=== PATIENT | female | born 1990 | race Two or more races ===

== ENCOUNTER 2016-06-26 15:14 | Inpatient (IN) | payer MEDICAID ==
[~2016-06-26] VITALS: Ht 167.6 cm; Wt 106.6 kg
[2016-06-26 16:00] LABS: Basophils # (auto) 0 uL; DEFINITIVE VIEW TRANSMISSION; Eosinophils # (auto) 0 uL; Lymphocytes # (auto) 1.8 uL; Monocytes # (auto) 0.3 uL; White Blood Cell 5.1 10^3/uL (4.4-10.8)
[2016-06-26 16:04] LABS: Basophils % (auto) 0.4 % (0.0-2.0); Eosinophils % (auto) 0.6 % (0.0-7.0); Hemoglobin 12.9 g/dL (12.2-16.2); Lymphocytes % (auto) 35.7 % (10.0-50.0); Mean Corpuscular Hemoglobin 27.4 pg (28.0-32.0); Mean Corpuscular Hgb Conc. 31.6 g/dL (32.0-36.0); Mean Corpuscular Volume 86.9 fL (80.0-100.0); Mean Platelet Volume 7.6 fL (7.4-10.4); Monocytes % (auto) 5.3 % (0.0-12.0); Platelet Count (auto) 338 10^3/uL (140-450); Red Cell Distribution Width 13.1 % (11.6-16.0)
[2016-06-26 16:20] LABS: Potassium 3.3 mmol/L (3.5-5.1)
[2016-06-26 16:23] LABS: Albumin 3.6 g/dL (3.4-5.0)
[2016-06-26 16:26] LABS: Bilirubin, Total 1.1 mg/dL (0.2-1.0); Total Protein 7.4 g/dL (6.4-8.2)
[2016-06-26] MEDS ORDERED: SODIUM CHLORIDE 0.9% 2,000 ML IV ONE (16:45)
[2016-06-26] MEDS ORDERED: KETOROLAC TROMETH 30 MG/ML 1ML VIAL IV ONE (16:45)
[2016-06-26] MEDS ORDERED: POTASSIUM CHL 20 Meq TABLET PO ONE (18:15)
[2016-06-26] MEDS ORDERED: TEMAZEPAM 15 MG CAP PO PRN (18:30)
[2016-06-26] MEDS ORDERED: ACETAMINOPHEN 500 MG TAB PO PRN (18:30)
[2016-06-26] MEDS ORDERED: PROMETHAZINE HCL 25 MG/ML 1ML IV PRN (18:30)
[2016-06-26] MEDS ORDERED: LORazepam 0.5 MG TAB PO PRN (18:30)
[2016-06-26] MEDS ORDERED: MORPHINE SULF INJ 2 MG/ML SYRINGE 1ML IV PRN (18:30)
[2016-06-26] MEDS ORDERED: HYDROcodone-ACET 5/325MG TAB PO PRN (18:30)
[2016-06-26] MEDS: FAMOTIDINE (10MG/ML) 2ML VL IV SCH (19:05)
[2016-06-26] MEDS: SODIUM CHLORIDE 0.9% 1,000 ML IV SCH ×2 (19:05→22:37)
[2016-06-26] MEDS ORDERED: cloNIDine HCL 0.1 MG TAB PO PRN (20:15)
[2016-06-26 20:33] VITALS: BP 137/69
[2016-06-26 21:08] VITALS: BP 137/69
[2016-06-26 21:23] VITALS: BP 137/69
[2016-06-26 22:30] LABS: Urine Bilirubin Negative (Negative); Urine Blood Negative /uL (Negative); Urine Color Yellow (Yellow); Urine Glucose Normal (Normal); Urine Ketone Negative (Negative); Urine Nitrite Negative (Negative); Urine RBC <1 /hpf (0 - 4); Urine Squamous Epithelial Cell FEW /hpf (<5); Urine Urobilinogen Normal (Negative)
[2016-06-27 04:42] VITALS: BP 146/49
[2016-06-27 06:01] LABS: Basophils # (auto) 0 uL; Basophils % (auto) 0.9 % (0.0-2.0); Eosinophils # (auto) 0.1 uL; Eosinophils % (auto) 1.9 % (0.0-7.0); Hematocrit 40.5 % (36.0-46.0); Hemoglobin 12.9 g/dL (12.2-16.2); Lymphocytes # (auto) 1.5 uL; Lymphocytes % (auto) 49.4 % (10.0-50.0); Mean Corpuscular Hemoglobin 27.3 pg (28.0-32.0); Mean Corpuscular Volume 85.4 fL (80.0-100.0); Mean Platelet Volume 7.4 fL (7.4-10.4); Monocytes # (auto) 0.2 uL; Monocytes % (auto) 7.3 % (0.0-12.0); Neutrophils # (auto) 1.2 uL; Neutrophils % (auto) 40.5 % (37.0-80.0); Platelet Count (auto) 300 10^3/uL (140-450); Red Cell Distribution Width 13.1 % (11.6-16.0)
[2016-06-27] MEDS: FAMOTIDINE (10MG/ML) 2ML VL IV SCH (06:20)
[2016-06-27 06:36] LABS: Potassium 3.9 mmol/L (3.5-5.1)
[2016-06-27 06:46] LABS: Amylase 25 U/L (25-115); Cholesterol 119 mg/dL (<200); Triglycerides 65 mg/dL (<150)
[2016-06-27 06:48] LABS: HDL Cholesterol 45 mg/dL (40-59); LDL Cholesterol 72 mg/dL (<100)
[2016-06-27 06:55] LABS: BUN/Creatinine Ratio 8.1; Calcium 7.6 mg/dL (8.5-10.1); Total Protein 6.4 g/dL (6.4-8.2)
[2016-06-27 06:59] LABS: Albumin 2.9 g/dL (3.4-5.0); Bilirubin, Total 2.3 mg/dL (0.2-1.0)
[2016-06-27 08:00] VITALS: BP 120/72
[2016-06-27 09:00] VITALS: BP 120/72
[2016-06-27 13:00] VITALS: BP 117/65
[2016-06-29 13:17] LABS: Hepatitis B Surface Antibody Positive
== END 2016-06-27 15:00 | disposition short-term general hospital (02) ==
LOC: ER 15:21 → CENTRAL 15:22
PROVIDERS: ADMIT Internal Medicine; ATTEND Internal Medicine
DX: K80.20 Calculus of gallbladder without cholecystitis without obstruction (principal); E66.01 Morbid (severe) obesity due to excess calories; F41.9 Anxiety disorder, unspecified; R79.89 Other specified abnormal findings of blood chemistry; R74.0 Nonspecific elevation of levels of transaminase and lactic acid dehydrogenase [LDH]; K80.50 Calculus of bile duct without cholangitis or cholecystitis without obstruction; Z68.37 Body mass index [BMI] 37.0-37.9, adult
CPT/HCPCS: 36415; 76705; 80053; 80061; 80329; 81001; 82150; 83690; 84484; 85025; 85652; 86141; 86704; 86706; 86708; 86803; 87340; 93005; 96361; 96374; G0434; J1885; J3490